=== PATIENT | male | born 1960 | race Caucasian/White ===

== ENCOUNTER 2017-01-07 10:50 | Observation (INO) | payer OTHER ==
[2017-01-07] MEDS ORDERED: cefTRIAXone IV 1 gm in Dextros 50 ML IVPB ONE (11:34)
[2017-01-07] MEDS ORDERED: MethylPREDNISolone 40 mg Vial ONE (11:34)
[2017-01-07 12:00] LABS: CHLORIDE 100 mmol/L (98-107); SODIUM 141 mmol/L (132-148)
[2017-01-07 12:01] LABS: POTASSIUM 4.1 mmol/L (3.6-5.2)
[2017-01-07 12:03] LABS: ALB/GLOB RATIO 1.5 (1.0-2.1); ALKALINE PHOSPHATASE 87 U/L (38-126); ALT/SGPT 101 U/L (21-72); AST/SGOT 82 U/L (17-59); BILIRUBIN,TOTAL 1.1 mg/dL (0.2-1.3); BLOOD UREA NITROGEN 17 mg/dL (9-20); CARBON DIOXIDE 24 mmol/L (22-30); GFR AFRICAN-AMERICAN > 60; GLUCOSE,RANDOM 109 mg/dL (75-110); TOTAL PROTEIN 8.3 g/dL (6.3-8.3)
[2017-01-07 12:04] LABS: CALCIUM 9.5 mg/dl (8.6-10.4)
[2017-01-07 12:08] LABS: BASO # 0.1 K/uL (0.0-0.2); BASO % 1.1 % (0.0-2.0); EOS # 0.3 K/uL (0.0-0.7); EOS % 3.2 % (0.0-4.0); HEMATOCRIT 45.7 % (35.0-51.0); LYMPH # 1.9 K/uL (1.0-4.3); LYMPH % 23.2 % (20.0-40.0); MEAN CORPUSCULAR HEMOGLOBIN 33.1 pg (27.0-31.0); MEAN CORPUSCULAR HGB CONC 34.1 g/dL (33.0-37.0); MEAN PLATELET VOLUME 8.4 fL (7.2-11.7); MONO # 0.6 K/uL (0.0-0.8); MONO % 7.2 % (0.0-10.0); RED CELL DISTRIBUTION WIDTH 13.8 % (11.5-14.5); WHITE BLOOD COUNT 8.1 K/uL (4.8-10.8)
[2017-01-07] MEDS ORDERED: cefTRIAXone IV 1 gm in Dextros 50 ML IV ONE (13:04)
[2017-01-07] MEDS ORDERED: Iodixanol 320 MG/ML 100 ML BOTTLE IV ONE (13:06)
--- NOTE | 2017-01-07 13:09 | C.PDOC ---
History Of Present Illness 56 year old male presents to the ED for evaluation of swelling to his left eye which began around 5 days ago. Patient states he applied antibiotic ointment to the area and notes his symptoms worsened when he woke up this morning. Patient notes he had similar symptoms around 2 weeks ago, which resolved after applying the same ointment. Patient denies fever, chills, vision change, headache, eye discharge or redness. Chief Complaint (Nursing): Eye Problem History Per: Patient History/Exam Limitations: no limitations Onset/Duration Of Symptoms: Days (5) Current Symptoms Are (Timing): Worse Injury To Eye?: No Associated Symptoms: Swelling. denies: Discharge From Eye Additional History Per: Patient Past Medical History Reviewed: Historical Data, Nursing Documentation, Vital Signs Vital Signs: Last Vital Signs Temp 98.8 F 01/07/17 16:55 Pulse 91 H 01/07/17 16:55 Resp 18 01/07/17 16:55 BP 192/114 H 01/07/17 16:55 Pulse Ox 98 01/07/17 16:55 - Medical History PMH: No Chronic Diseases Surgical History: Tonsillectomy Family History: States: Unknown Family Hx - Social History Hx Tobacco Use: No Hx Alcohol Use: Yes Hx Substance Use: No Review Of Systems Constitutional: Negative for: Fever, Chills Eyes: Positive for: Other (left eye swelling. no discharge ). Negative for: Vision Change, Redness Neurological: Negative for: Headache Physical Exam - Physical Exam Appears: Non-toxic, No Acute Distress Skin: Warm, Dry, Other (periorbital erythema ) Head: Atraumatic, Normacephalic, Tenderness, Swelling (periorbital swelling, erythema and tenderness) Eye(s): bilateral: PERRL, EOMI Nose: Normal Oral Mucosa: Moist Neck: Supple Chest: Symmetrical, No Deformity Cardiovascular: Rhythm Regular, No Murmur Respiratory: Normal Breath Sounds, No Accessory Muscle Use Extremity: Normal ROM Neurological/Psych: Oriented x3, Normal Speech, Normal Cognition Gait: Steady ED Course And Treatment - Laboratory Results Result Diagrams: 01/07/17 11:49 01/07/17 11:49 O2 Sat by Pulse Oximetry: 99 (on RA) Pulse Ox Interpretation: Normal - CT Scan/US CT Head Other Rad Studies (CT/US): Interpreted By Me, Read By Radiologist, Radiology Report Reviewed CT/US Interpretation: PROCEDURE: CT orbits dated 01/07/2017. HISTORY: Left periorbital swelling. COMPARISON: No prior. TECHNIQUE: Following administration of intravenous iodinated contrast, axial CT images of the orbits were obtained. Coronal and sagittal reformats were generated. Intravenous contrast dose: 100 cc Visipaque 320. Radiation dose: Total exam DLP = 576.62 mGy-cm. This CT exam was performed using one or more of the following dose reduction techniques: Automated exposure control, adjustment of the mA and/or kV according to patient size, and/or use of iterative reconstruction technique. FINDINGS: The current study reveals significant left-sided facial soft tissue swelling -cellulitis. Swelling extends from the inferior left premaxillary region superiorly into the left periorbital region and medially over nasal bones and bridge of the nose and glabella region. . There is further superolateral extension of soft tissue swelling over the supraorbital - lateral orbital rim and zygomatic arch. There is further extension over the supraorbital and left frontotemporal scalp. No evidence of postseptal extension. . There are no drainable fluid or abscess collection seen. No gross subcutaneous or orbital emphysema. The globes intact and lenses appropriately located. There are no retrobulbar hemorrhages or collections seen. Extraocular musculature and optic nerves unremarkable. The frontal sinuses are underpneumatized/hypoplastic. Remaining visualized paranasal sinuses well- developed and currently well-aerated. There are no fluid levels seen to suggest acute sinusitis. Minor mucosal thickening within both maxillary antra as well as a few ethmoid air cells. IMPRESSION: Extensive left-sided facial soft tissue swelling -cellulitis which extends from the inferior premaxillary region superiorly into the periorbital soft tissues. There is extension medially over the and nasal bones bridge of nose and glabella region. There is also further extension into the lateral orbital region and overlying the left zygomatic arch as well as the supraorbital and left frontotemporal soft tissues. . No drainable fluid or abscess collection seen. No evidence of postseptal extension of cellulitis. Progress Note: CT Orbits/Facial ordered and reviewed. Rocephin IV, Solu-Medrol IV administered. 15:[address] Haile's answering service. Case discused with Dr Cates, agreed upon plan and treatment. Instructed Lisinopril PO. Pt notes no h/o HTN. DEnies headache, chest pain, dizziness, sob. Case discussed with Dr Haile, agreed upon admission. Disposition - Disposition Disposition: HOME/ ROUTINE Disposition Time: 15:16 Condition: STABLE - Clinical Impression Clinical Impression: Periorbital cellulitis - PA / [employer] / Resident Statement MD/DO has reviewed & agrees with the documentation as recorded. - Scribe Statement The provider has reviewed the documentation as recorded by the Scribe (Ksenia Obrien) All medical record entries made by the Scribe were at my direction and personally dictated by me. I have reviewed the chart and agree that the record accurately reflects my personal performance of the history, physical exam, medical decision making, and the department course for this patient. I have also personally directed, reviewed, and agree with the discharge instructions and disposition
--- NOTE | 2017-01-07 14:53 | CT ---
PROCEDURE: CT orbits dated 01/07/2017 HISTORY: Left periorbital swelling COMPARISON: No prior TECHNIQUE: Following administration of intravenous iodinated contrast, axial CT images of the orbits were obtained. Coronal and sagittal reformats were generated. Intravenous contrast dose: 100 cc Visipaque 320 Radiation dose: Total exam DLP = 576.62 mGy-cm. This CT exam was performed using one or more of the following dose reduction techniques: Automated exposure control, adjustment of the mA and/or kV according to patient size, and/or use of iterative reconstruction technique. FINDINGS: The current study reveals significant left-sided facial soft tissue swelling -cellulitis. Swelling extends from the inferior left premaxillary region superiorly into the left periorbital region and medially over nasal bones and bridge of the nose and glabella region. . There is further superolateral extension of soft tissue swelling over the supraorbital - lateral orbital rim and zygomatic arch. There is further extension over the supraorbital and left frontotemporal scalp. No evidence of postseptal extension. . There are no drainable fluid or abscess collection seen. No gross subcutaneous or orbital emphysema. The globes intact and lenses appropriately located. There are no retrobulbar hemorrhages or collections seen. Extraocular musculature and optic nerves unremarkable The frontal sinuses are underpneumatized/hypoplastic. Remaining visualized paranasal sinuses well-developed and currently well-aerated. There are no fluid levels seen to suggest acute sinusitis. Minor mucosal thickening within both maxillary antra as well as a few ethmoid air cells. IMPRESSION: Extensive left-sided facial soft tissue swelling -cellulitis which extends from the inferior premaxillary region superiorly into the periorbital soft tissues. There is extension medially over the and nasal bones bridge of nose and glabella region. There is also further extension into the lateral orbital region and overlying the left zygomatic arch as well as the supraorbital and left frontotemporal soft tissues. . No drainable fluid or abscess collection seen. No evidence of postseptal extension of cellulitis.
--- NOTE | 2017-01-07 16:04 | CP.PCM.HP ---
History of Present Illness - History of Present Illness History of Present Illness: Medicine Note For Dr. Haile CC: swollen left eye HPI: 56M with no PMHx presents to the ED with left periorbital swelling that started 2 weeks ago. He denied any trauma to the eye, no foreign object, or eye scratching. Over the past 5 days the swelling started to become more significant , causing his left eye to remain closed. He applied a topical OTC antiobiotic ointment, which made it worse, which brought the patient to the ED. Denied any orbital discharge or bleeding. Denied any fever, chills, blurry visions, double vision, neurological deficits, sinus pressure, sinus congestion, headache, eye pain, chest pain, SOB, abdominal pain, n/v/d/c, or urinary symptoms. PMHx: Denied PSHx: Denied Meds: Denied All: NKDA SHx: Denied tobacco or illicit drug use, FHx: Denied PMD: None Present on Admission - Present on Admission Any Indicators Present on Admission: No Past Patient History - Past Social History Smoking Status: Never Smoked - PSYCHIATRIC Hx Substance Use: No - SURGICAL HISTORY Hx Tonsillectomy: Yes Meds Home Medications: Home Medication List Medication Instructions Recorded Confirmed Type Amoxicillin/Clavulanate [Augmentin 1 tab PO BID #14 tab 01/07/17 Rx 875 MG-125 MG] Sulfamethoxazole/Trimethoprim 1 tab PO BID #14 tab 01/07/17 Rx [Bactrim DS 800 mg-160 mg] Allergies/Adverse Reactions: Allergies Allergy/AdvReac Type Severity Reaction Status Date / Time No Known Allergies Allergy Unverified 01/07/17 10:59 Physical Exam - Constitutional Appears: No Acute Distress - Head Exam Head Exam: NORMAL INSPECTION, NORMOCEPHALIC - Eye Exam Eye Exam: EOMI, Periorbital swelling, Periorbital tenderness, PERRL. absent: Nystagmus, Scleral icterus Pupil Exam: NORMAL ACCOMODATION, PERRL Additional comments: EOMI, No diplopia, TTP around left orbit, No TTP around sinuses - ENT Exam ENT Exam: Mucous Membranes Moist - Neck Exam Neck exam: Positive for: Normal Inspection. Negative for: Lymphadenopathy, Tenderness, Thyromegaly - Respiratory Exam Respiratory Exam: Clear to Auscultation Bilateral, NORMAL BREATHING PATTERN. absent: Decreased Breath Sounds, Wheezes - Cardiovascular Exam Cardiovascular Exam: REGULAR RHYTHM, RRR, +S1, +S2. absent: Diastolic murmur, Systolic Murmur - GI/Abdominal Exam GI & Abdominal Exam: Normal Bowel Sounds, Soft. absent: Distended, Tenderness - Extremities Exam Extremities exam: Positive for: normal inspection, pedal pulses present. Negative for: pedal edema, tenderness - Neurological Exam Neurological exam: Alert, Oriented x3 - Psychiatric Exam Psychiatric exam: Normal Affect, Normal Mood - Skin Skin Exam: Dry, Intact, Normal Color, Warm Results - Vital Signs Recent Vital Signs: Last Vital Signs Temp 98.3 F 01/07/17 14:01 Pulse 70 01/07/17 14:01 Resp 20 01/07/17 14:01 BP 170/112 H 01/07/17 15:15 Pulse Ox 99 01/07/17 15:51 - Labs Result Diagrams: 01/07/17 11:49 01/07/17 11:49 Labs: Laboratory Results - last 24 hr 01/07/17 01/07/17 11:49 11:49 WBC 8.1 RBC 4.72 Hgb 15.6 Hct 45.7 MCV 97.0 H MCH 33.1 H MCHC 34.1 RDW 13.8 Plt Count 250 MPV 8.4 Neut % (Auto) 65.3 Lymph % (Auto) 23.2 [facility] % (Auto) 7.2 Eos % (Auto) 3.2 Baso % (Auto) 1.1 Neut # 5.3 Lymph # 1.9 [facility] # 0.6 Eos # 0.3 Baso # 0.1 Sodium 141 Potassium 4.1 Chloride 100 Carbon Dioxide 24 Anion Gap 22 H BUN 17 Creatinine 0.8 Est GFR ( Amer) > 60 Est GFR (Non-Af Amer) > 60 Random Glucose 109 Calcium 9.5 Total Bilirubin 1.1 AST 82 H ALT 101 H Alkaline Phosphatase 87 Total Protein 8.3 Albumin 5.0 Globulin 3.3 Albumin/Globulin Ratio 1.5 Assessment & Plan - Assessment and Plan (Free Text) Plan: Periorbital cellulitis * Left periorbital erythema and edema * Facial Bones CT: Extensive left-sided facial soft tissue swelling -cellulitis which extends from the inferior premaxillary region superiorly into the periorbital soft tissues. There is extension medially over the and nasal bones bridge of nose and glabella region. There is also further extension into the lateral orbital region and overlying the left zygomatic arch as well as the supraorbital and left frontotemporal soft tissues. No drainable fluid or abscess collection seen. No evidence of postseptal extension of cellulitis. * No neurological deficits - will hold off on ENT or Optho consult, unless not responsive to ABX * Received a dose of solumedrol in the ED- expect leukocytosis * F/U procal * Started on Zosyn Q6H, Vancomycin 1grm QD 01/07/17 Hypertension * Started on Norvasc 5mg PO daily * Hydralazine 25mg PO TID PRN if SBP >180 * Will continue to monitor Transaminitis * LFTs: 82/101 * F/U Hep panel Prophylactic Measures * GI PPX: Protonix 40mg PO daily * DVT PPX: SCDs * Heart Healthy Diet with 2gm Na restriction * Zofran PRN DW Joce Goyal DO, PGY-1
[2017-01-07] MEDS ORDERED: Aritificial Tears (15ml) OU PRN ×2 (16:47→17:00)
[2017-01-07] MEDS ORDERED: Vancomycin 1 GM 1 GM/250 ML BAG IVPB ONE (16:54)
[2017-01-07 18:23] VITALS: RESP 20
[2017-01-07] MEDS: Piperacill/Tazo 3.375gm in Dex 3.375 GM/50 ML BAG IVPB SCH (19:55)
[2017-01-08] MEDS: Piperacill/Tazo 3.375gm in Dex 3.375 GM/50 ML BAG IVPB SCH ×4 (00:19→19:00)
--- NOTE | 2017-01-08 09:14 | CP.PCM.PN ---
<Ortiz Hobsona - Last Filed: 01/08/17 13:27> Subjective - Date & Time of Evaluation Date of Evaluation: 01/08/17 Time of Evaluation: 08:00 - Subjective Subjective: Medicine Note for Dr. Haile Patient was seen and examined at bedside. Patient reports a reduction in swelling, no eye pain. Denied fever, chills, headache, SOB, chest pain, abdominal pain, n/v/d/c, or urinary symptoms. Objective - Vital Signs/Intake and Output Vital Signs (last 24 hours): Temp Pulse Resp BP Pulse Ox 97.9 F 78 20 139/90 96 01/08/17 08:00 01/08/17 08:00 01/08/17 08:00 01/08/17 08:00 01/08/17 08:00 Intake and Output: 01/08/17 01/08/17 06:59 18:59 Intake Total 850 Balance 850 - Medications Medications: Current Medications Acetaminophen (Tylenol 325mg Tab) 650 mg PO Q6 PRN PRN Reason: Pain, Mild (1-3) Amlodipine Besylate (Norvasc) 5 mg PO DAILY [facility] Artificial Tears (Artificial Tears) 0 ml OU TID PRN PRN Reason: Dry eyes Hydralazine HCl (Apresoline) 25 mg PO QID PRN PRN Reason: Systolic Blood Pressure Piperacillin Sod/Tazobactam Sod (Zosyn 3.375 Gm Iv Premix) 3.375 gm in 50 mls @ 100 mls/hr IVPB Q6H [facility] Last Admin: 01/08/17 06:07 Dose: 100 mls/hr Vancomycin HCl 1 gm/ Sodium (Chloride) 250 mls @ 166.7 mls/hr IVPB Q24H [facility] Ondansetron HCl (Zofran Inj) 4 mg IVP Q6 PRN PRN Reason: Nausea/Vomiting Pantoprazole Sodium (Protonix Ec Tab) 40 mg PO DAILY [facility]IA[facility] - Labs Labs: 01/07/17 11:49 01/07/17 11:49 - Additional Findings Additional findings: - Constitutional Appears: No Acute Distress - Head Exam Head Exam: NORMAL INSPECTION, NORMOCEPHALIC - Eye Exam Eye Exam: EOMI, Periorbital swelling, Periorbital tenderness, PERRL. absent: Nystagmus, Scleral icterus Pupil Exam: NORMAL ACCOMODATION, PERRL Additional comments: EOMI, No diplopia, TTP around left orbit, No TTP around sinuses, less erythema and edema around left orbit - ENT Exam ENT Exam: Mucous Membranes Moist - Neck Exam Neck exam: Positive for: Normal Inspection. Negative for: Lymphadenopathy, Tenderness, Thyromegaly - Respiratory Exam Respiratory Exam: Clear to Auscultation Bilateral, NORMAL BREATHING PATTERN. absent: Decreased Breath Sounds, Wheezes - Cardiovascular Exam Cardiovascular Exam: REGULAR RHYTHM, RRR, +S1, +S2. absent: Diastolic murmur, Systolic Murmur - GI/Abdominal Exam GI & Abdominal Exam: Normal Bowel Sounds, Soft. absent: Distended, Tenderness - Extremities Exam Extremities exam: Positive for: normal inspection, pedal pulses present. Negative for: pedal edema, tenderness - Neurological Exam Neurological exam: Alert, Oriented x3 - Psychiatric Exam Psychiatric exam: Normal Affect, Normal Mood - Skin Skin Exam: Dry, Intact, Normal Color, Warm Assessment and Plan - Assessment and Plan (Free Text) Plan: Periorbital cellulitis * Left periorbital erythema and edema * Facial Bones CT: Extensive left-sided facial soft tissue swelling -cellulitis which extends from the inferior premaxillary region superiorly into the periorbital soft tissues. There is extension medially over the and nasal bones bridge of nose and glabella region. There is also further extension into the lateral orbital region and overlying the left zygomatic arch as well as the supraorbital and left frontotemporal soft tissues. No drainable fluid or abscess collection seen. No evidence of postseptal extension of cellulitis. * No neurological deficits - will hold off on ENT or Optho consult, unless not responsive to ABX * Received a dose of solumedrol in the ED- expected leukocytosis on AM labs * ID consulted - Dr. Jones- help appreciated * F/U procal * Started on Zosyn Q6H, Vancomycin 1grm QD 01/07/17 Hypertension * Started on Norvasc 5mg PO daily * Hydralazine 25mg PO TID PRN if SBP >180 * BP today 139/90 - without any BP medications - will continue to monitor and adjust medications accordingly Transaminitis * LFTs: 82/101 * F/U Hep panel Prophylactic Measures * GI PPX: Protonix 40mg PO daily * DVT PPX: SCDs * Heart Healthy Diet with 2gm Na restriction * Zofran PRN DW Joce Goyal DO, PGY-1 <Elan Haile Jr. - Last Filed: 01/22/17 11:51> Objective - Vital Signs/Intake and Output Vital Signs (last 24 hours): Temp Pulse Resp BP Pulse Ox 98.6 F 63 20 152/90 H 98 01/09/17 08:06 01/09/17 08:06 01/09/17 08:06 01/09/17 08:06 01/09/17 08:06 - Labs Labs: 01/09/17 07:54 01/09/17 07:54 Attending/Attestation - Attestation I have personally seen and examined this patient.: Yes I have fully participated in the care of the patient.: Yes I have reviewed all pertinent clinical information, including history, physical exam and plan: Yes Notes (Text): 01/22/17 11:51 Agree with resident note and plan of care
[2017-01-08 09:15] LABS: BASO # 0.1 K/uL (0.0-0.2); BASO % 0.7 % (0.0-2.0); EOS # 0.1 K/uL (0.0-0.7); EOS % 0.5 % (0.0-4.0); HEMATOCRIT 42.3 % (35.0-51.0); LYMPH # 1.5 K/uL (1.0-4.3); LYMPH % 13.9 % (20.0-40.0); MEAN CELL VOLUME 95.7 fL (80.0-94.0); MEAN CORPUSCULAR HEMOGLOBIN 33.3 pg (27.0-31.0); MEAN CORPUSCULAR HGB CONC 34.8 g/dL (33.0-37.0); MEAN PLATELET VOLUME 8.5 fL (7.2-11.7); MONO # 0.6 K/uL (0.0-0.8); MONO % 5.3 % (0.0-10.0); RED CELL DISTRIBUTION WIDTH 13.8 % (11.5-14.5); WHITE BLOOD COUNT 10.9 K/uL (4.8-10.8)
[2017-01-08 09:28] LABS: CHLORIDE 99 mmol/L (98-107); POTASSIUM 3.4 mmol/L (3.6-5.2); SODIUM 137 mmol/L (132-148)
[2017-01-08 09:31] LABS: BILIRUBIN,TOTAL 1.2 mg/dL (0.2-1.3); CARBON DIOXIDE 21 mmol/L (22-30); CHOLESTEROL 243 mg/dL (0-199); GFR AFRICAN-AMERICAN > 60
[2017-01-08 09:32] LABS: ALB/GLOB RATIO 1.4 (1.0-2.1); ALKALINE PHOSPHATASE 63 U/L (38-126); ALT/SGPT 72 U/L (21-72); AST/SGOT 49 U/L (17-59); BLOOD UREA NITROGEN 18 mg/dL (9-20); CALCIUM 9.1 mg/dl (8.6-10.4); GLUCOSE,RANDOM 171 mg/dL (75-110); MAGNESIUM 1.9 mg/dL (1.6-2.3); PHOSPHOROUS 3.2 mg/dL (2.5-4.5); TOTAL PROTEIN 7.3 g/dL (6.3-8.3)
[2017-01-08] MEDS: Pantoprazole 40 mg EC Tab PO SCH (10:05)
[2017-01-08] MEDS ORDERED: MethylPREDNISolone 40 mg Vial IVP ONE (11:30)
[2017-01-08 16:33] VITALS: O2SAT 98
--- NOTE | 2017-01-08 17:23 | CP.PCM.CON ---
History of Present Illness - History of Present Illness History of Present Illness: 56M with no PMHx presents to the ED with left periorbital swelling that started 2 weeks ago. Failed out pt rx with augmentin and bactrim He denied any trauma to the eye, no foreign object, or eye scratching. Over the past 5 days the swelling started to become more significant, causing his left eye to remain closed. He applied a topical OTC antiobiotic ointment, which made it worse, which brought the patient to the ED. Denied any orbital discharge or bleeding. Denied any fever, chills, blurry visions, double vision, neurological deficits, sinus pressure, sinus congestion, headache, eye pain, chest pain, SOB, abdominal pain, n/v/d/c, or urinary symptoms. Review of Systems - Constitutional Constitutional: As Per HPI. absent: Chills, Fever - EENT Eyes: As Per HPI Ears: absent: As Per HPI, Decreased Hearing, Ear Discharge, Ear Pain, Tinnitus, Abnormal Hearing, Disequilibrium, Dizziness, Other Nose/Mouth/Throat: absent: As Per HPI, Epistaxis, Nasal Congestion, Nasal Discharge, Nasal Obstruction, Nasal Trauma, Nose Pain, Post Nasal Drip, Sinus Pain, Sinus Pressure, Bleeding Gums, Change in Voice, Dental Pain, Dry Mouth, Dysphagia, Halitosis, Hoarsness, Lip Swelling, Mouth Lesions, Mouth Pain, Odynophagia, Sore Throat, Throat Swelling, Tongue Swelling, Facial Pain, Neck Pain, Neck Mass, Other - Cardiovascular Cardiovascular: absent: As Per HPI, Acrocyanosis, Chest Pain, Chest Pain at Rest , Chest Pain with Activity, Claudication, Diaphoresis, Dyspnea, Dyspnea on Exertion, Edema, Irregular Heart Rhythm, Pain Radiating to Arm/Neck/Jaw, Leg Edema, Leg Ulcers, Lightheadedness, Orthopnea, Palpitations, Paroxysmal Nocturnal Dyspnea, Pedal Edema, Radiating Pain, Rapid Heart Rate, Slow Heart Rate, Syncope, Other - Respiratory Respiratory: absent: As Per HPI, Cough, Dyspnea, Hemoptysis, Dyspnea on Exertion , Wheezing, Snoring, Stridor, Pain on Inspiration, Chest Congestion, Excessive Mucous Production, Change in Mucous Color, Pain with Coughing, Other - Gastrointestinal Gastrointestinal: absent: As Per HPI, Abdominal Pain, Belching, Bloating, Change in Bowel Habits, Change in Stool Character, Coffee Ground Emesis, Constipation, Cramping, Diarrhea, Dyspepsia, Dysphagia, Early Satiety, Excessive Flatus, Fecal Incontinence, Heartburn, Hematemesis, Hematochezia, Loose Stools, Melena, Nausea, Odynophagia, Temesmus, Vomiting, Other - Genitourinary Genitourinary: absent: As Per HPI, Change in Urinary Stream, Difficulty Urinating, Dysuria, Flank Pain, Hematuria, Pyuria, Nocturia, Urinary Incontinence, Urinary Frequency, Urinary Hesitance, Urinary Urgency, Voiding Freq/Small Amts, Freq UTI, Hx Renal/Bladder Calculi, Hx /Renal Surgery, Bladder Distension, Other - Musculoskeletal Musculoskeletal: absent: As Per HPI, Abnormal Gait, Arthralgias, Atrophy, Back Pain, Deformity, Joint Swelling, Limited Range of Motion, Loss of Height, Muscle Cramps, Muscle Weakness, Myalgias, Neck Pain, Numbness, Radiating Pain into Limb, Stiffness, Tingling, Other - Integumentary Integumentary: absent: As Per HPI, Acne, Alopecia, Bleeding Lesions, Change in Hair, Change in Nails, Change in Pigmentation, Changing Lesions, Dry Skin, Erythema, Furuncle, Hirsutism, Lesions, New Lesions, Non-Healing Lesions, Photosensitivity, Pruritus, Rash, Skin Pain, Skin Ulcer, Sores, Striae, Swelling , Unusual Bruising, Wounds, Jaundice, Other - Neurological Neurological: absent: As Per HPI, Abnormal Gait, Abnormal Hearing, Abnormal Movements, Abnormal Speech, Behavioral Changes, Burning Sensations, Confusion, Convulsions, Disequilibrium, Dizziness, Numbness, Focal Weakness, Frequent Falls , Headaches, Lack of Coordination, Loss of Vision, Memory Loss, Paresthesias, Radicular Pain, Restless Legs, Sensory Deficit, Syncope, Tingling, Tremor, Vertigo, Weakness, Other Visual Disturbances, Other - Psychiatric Psychiatric: absent: As Per HPI, Abnormal Sleep Pattern, Anhedonia, Anxiety, Auditory Hallucinations, Behavioral Changes, Change in Appetite, Change in Libido, Confusion, Depression, Difficulty Concentrating, Hallucinations, Homicidal Ideation, Hopelessness, Irritability, Memory Loss, Mood Swings, Panic Attacks, Paranoia, Suicidal Ideation, Visual Hallucinations, Tactile Hallucinations, Other - Endocrine Endocrine: absent: As Per HPI, Change in Body Appearance, Change in Libido, Cold Intolorance, Deepening of Voice, Excessive Sweating, Fatigue, Flushing, Heat Intolorance, Increase in Ring/Shoe/Hat Size, Palpitations, Polydipsia, Polyphagia, Polyuria, Other - Hematologic/Lymphatic Hematologic: absent: As Per HPI, Easy Bleeding, Easy Bruising, Lymphadenopathy, Other Past Patient History - Past Social History Smoking Status: Never Smoked - MUSCULOSKELETAL/RHEUMATOLOGICAL Hx Falls: No - PSYCHIATRIC Hx Substance Use: No - SURGICAL HISTORY Hx Tonsillectomy: Yes - ANESTHESIA Hx Anesthesia: Yes Hx Anesthesia Reactions: No Hx Malignant Hyperthermia: No Has any member of the family had a problem w/ anesthesia?: No Meds Home Medications: Home Medication List Medication Instructions Recorded Confirmed Type Amoxicillin/Clavulanate [Augmentin 1 tab PO BID #14 tab 01/07/17 Rx 875 MG-125 MG] Sulfamethoxazole/Trimethoprim 1 tab PO BID #14 tab 01/07/17 Rx [Bactrim DS 800 mg-160 mg] Allergies/Adverse Reactions: Allergies Allergy/AdvReac Type Severity Reaction Status Date / Time No Known Allergies Allergy Unverified 01/07/17 10:59 - Medications Medications: Current Medications Acetaminophen (Tylenol 325mg Tab) 650 mg PO Q6 PRN PRN Reason: Pain, Mild (1-3) Amlodipine Besylate (Norvasc) 5 mg PO DAILY [facility] Last Admin: 01/08/17 10:05 Dose: 5 mg Artificial Tears (Artificial Tears) 0 ml OU TID PRN PRN Reason: Dry eyes Hydralazine HCl (Apresoline) 25 mg PO QID PRN PRN Reason: Systolic Blood Pressure Piperacillin Sod/Tazobactam Sod (Zosyn 3.375 Gm Iv Premix) 3.375 gm in 50 mls @ 100 mls/hr IVPB Q6H [facility] Last Admin: 01/08/17 12:00 Dose: 100 mls/hr Vancomycin HCl 1 gm/ Sodium (Chloride) 250 mls @ 166.7 mls/hr IVPB Q12H [facility] Ondansetron HCl (Zofran Inj) 4 mg IVP Q6 PRN PRN Reason: Nausea/Vomiting Pantoprazole Sodium (Protonix Ec Tab) 40 mg PO DAILY [facility] Last Admin: 01/08/17 10:05 Dose: 40 mg Physical Exam - Constitutional Appears: Non-toxic, Chronically Ill - Head Exam Head Exam: ATRAUMATIC, NORMAL INSPECTION, NORMOCEPHALIC - Eye Exam Eye Exam: EOMI, Periorbital swelling, Periorbital tenderness, PERRL. absent: Scleral icterus Pupil Exam: NORMAL ACCOMODATION - ENT Exam ENT Exam: Mucous Membranes Dry, Normal External Ear Exam, Normal Oropharynx - Neck Exam Neck exam: Negative for: Lymphadenopathy - Respiratory Exam Respiratory Exam: Decreased Breath Sounds, Clear to Auscultation Bilateral - Cardiovascular Exam Cardiovascular Exam: REGULAR RHYTHM, +S1, +S2 - GI/Abdominal Exam GI & Abdominal Exam: Diminished Bowel Sounds, Soft. absent: Tenderness - Rectal Exam Rectal Exam: Deferred - Exam Exam: NORMAL INSPECTION - Extremities Exam Extremities exam: Positive for: pedal pulses present. Negative for: calf tenderness, full ROM, pedal edema, tenderness - Back Exam Back exam: absent: CVA tenderness (L), CVA tenderness (R) - Neurological Exam Neurological exam: Alert, CN II-XII Intact, Oriented x3 - Psychiatric Exam Psychiatric exam: Normal Mood - Skin Skin Exam: Dry, Intact Results - Vital Signs Recent Vital Signs: Last Vital Signs Temp 98.5 F 01/08/17 15:00 Pulse 65 01/08/17 15:00 Resp 20 01/08/17 15:00 BP 148/91 H 01/08/17 15:00 Pulse Ox 98 01/08/17 15:00 - Labs Result Diagrams: 01/08/17 09:05 01/08/17 09:05 Labs: Laboratory Results - last 24 hr 01/08/17 01/08/17 09:05 09:05 WBC 10.9 H RBC 4.42 Hgb 14.7 Hct 42.3 MCV 95.7 H MCH 33.3 H MCHC 34.8 RDW 13.8 Plt Count 263 MPV 8.5 Neut % (Auto) 79.6 H Lymph % (Auto) 13.9 L [place] % (Auto) 5.3 Eos % (Auto) 0.5 Baso % (Auto) 0.7 Neut # 8.7 H Lymph # 1.5 [place] # 0.6 Eos # 0.1 Baso # 0.1 Sodium 137 Potassium 3.4 L Chloride 99 Carbon Dioxide 21 L Anion Gap 20 BUN 18 Creatinine 0.9 Est GFR ( Amer) > 60 Est GFR (Non-Af Amer) > 60 Random Glucose 171 H Calcium 9.1 Phosphorus 3.2 Magnesium 1.9 Total Bilirubin 1.2 AST 49 ALT 72 D Alkaline Phosphatase 63 Total Protein 7.3 Albumin 4.3 Globulin 3.1 Albumin/Globulin Ratio 1.4 Triglycerides 86 Cholesterol 243 H LDL Cholesterol Direct 140 H HDL Cholesterol 98 H Assessment & Plan (1) Periorbital cellulitis Status: Acute - Assessment and Plan (Free Text) Plan: improving on Vanco/zosyn cont rx
[2017-01-09] MEDS: Piperacill/Tazo 3.375gm in Dex 3.375 GM/50 ML BAG IVPB SCH ×3 (00:52→13:07)
[2017-01-09 08:07] VITALS: BP 152/90; PULSE 63; TEMP 98.6
[2017-01-09 08:11] LABS: BASO # 0.1 K/uL (0.0-0.2); BASO % 0.7 % (0.0-2.0); EOS # 0.1 K/uL (0.0-0.7); HEMATOCRIT 41.4 % (35.0-51.0); LYMPH # 2.1 K/uL (1.0-4.3); LYMPH % 20.6 % (20.0-40.0); MEAN CELL VOLUME 96.3 fL (80.0-94.0); MEAN CORPUSCULAR HEMOGLOBIN 33.7 pg (27.0-31.0); MEAN PLATELET VOLUME 8.7 fL (7.2-11.7); MONO # 0.7 K/uL (0.0-0.8); MONO % 7.3 % (0.0-10.0); NRBC % 0.1 % (0.0-2.0); RED CELL DISTRIBUTION WIDTH 13.7 % (11.5-14.5); WHITE BLOOD COUNT 10.3 K/uL (4.8-10.8)
[2017-01-09 08:53] LABS: CHLORIDE 99 mmol/L (98-107); POTASSIUM 3.9 mmol/L (3.6-5.2); SODIUM 136 mmol/L (132-148)
[2017-01-09 08:55] LABS: ALB/GLOB RATIO 1.4 (1.0-2.1); ALKALINE PHOSPHATASE 54 U/L (38-126); AST/SGOT 40 U/L (17-59); BLOOD UREA NITROGEN 17 mg/dL (9-20); CARBON DIOXIDE 23 mmol/L (22-30); GFR AFRICAN-AMERICAN > 60; TOTAL PROTEIN 6.9 g/dL (6.3-8.3)
[2017-01-09 08:56] LABS: ALT/SGPT 70 U/L (21-72); CALCIUM 8.6 mg/dl (8.6-10.4); GLUCOSE,RANDOM 88 mg/dL (75-110); MAGNESIUM 2.1 mg/dL (1.6-2.3); PHOSPHOROUS 3.5 mg/dL (2.5-4.5)
[2017-01-09] MEDS: Pantoprazole 40 mg EC Tab PO SCH (09:24)
--- NOTE | 2017-01-09 11:35 | CP.PCM.PN ---
Subjective - Date & Time of Evaluation Date of Evaluation: 01/09/17 Time of Evaluation: 08:00 - Subjective Subjective: improving cellulitis OS less swollen Objective - Vital Signs/Intake and Output Vital Signs (last 24 hours): Temp Pulse Resp BP Pulse Ox 98.6 F 63 20 152/90 H 98 01/09/17 08:06 01/09/17 08:06 01/09/17 08:06 01/09/17 08:06 01/09/17 08:06 Intake and Output: 01/09/17 01/09/17 06:59 18:59 Intake Total 600 400 Balance 600 400 - Medications Medications: Current Medications Acetaminophen (Tylenol 325mg Tab) 650 mg PO Q6 PRN PRN Reason: Pain, Mild (1-3) Amlodipine Besylate (Norvasc) 5 mg PO DAILY [facility] Last Admin: 01/09/17 09:24 Dose: 5 mg Artificial Tears (Artificial Tears) 0 ml OU TID PRN PRN Reason: Dry eyes Hydralazine HCl (Apresoline) 25 mg PO QID PRN PRN Reason: Systolic Blood Pressure Piperacillin Sod/Tazobactam Sod (Zosyn 3.375 Gm Iv Premix) 3.375 gm in 50 mls @ 100 mls/hr IVPB Q6H [facility] Last Admin: 01/09/17 06:15 Dose: 100 mls/hr Vancomycin HCl 1 gm/ Sodium (Chloride) 250 mls @ 166.7 mls/hr IVPB Q12H [facility] Last Admin: 01/09/17 09:24 Dose: 166.7 mls/hr Ondansetron HCl (Zofran Inj) 4 mg IVP Q6 PRN PRN Reason: Nausea/Vomiting Pantoprazole Sodium (Protonix Ec Tab) 40 mg PO DAILY [facility] Last Admin: 01/09/17 09:24 Dose: 40 mg - Labs Labs: 01/09/17 07:54 01/09/17 07:54 - Constitutional Appears: Non-toxic, Chronically Ill - Head Exam Head Exam: NORMOCEPHALIC - Eye Exam Eye Exam: PERRL - ENT Exam ENT Exam: Mucous Membranes Dry - Neck Exam Neck Exam: absent: Lymphadenopathy - Respiratory Exam Respiratory Exam: Decreased Breath Sounds, Clear to Ausculation Bilateral - Cardiovascular Exam Cardiovascular Exam: REGULAR RHYTHM - GI/Abdominal Exam GI & Abdominal Exam: Distended, Soft Assessment and Plan (1) Periorbital cellulitis Status: Acute - Assessment and Plan (Free Text) Plan: cont antibiotics
[2017-01-09] MEDS ORDERED: Influenza Vaccine 60 mcg/0.5 mL SYR (4YR UP) IM ONE (13:57)
--- NOTE | 2017-01-09 14:48 | CP.PCM.DIS ---
Provider - Provider Date of Admission: 01/07/17 15:57 Attending physician: Elan Haile Jr, MD Time Spent in preparation of Discharge (in minutes): 32 Diagnosis - Discharge Diagnosis (1) Periorbital cellulitis Status: Acute (2) Transaminitis Status: Acute (3) History of hypertension Status: Chronic (4) Prophylactic measure Status: Acute Hospital Course - Lab Results Lab Results: Most Recent Lab Values WBC 10.3 K/uL (4.8-10.8) 01/09/17 07:54 RBC 4.30 Mil/uL (4.40-5.90) L 01/09/17 07:54 Hgb 14.5 g/dL (12.0-18.0) 01/09/17 07:54 Hct 41.4 % (35.0-51.0) 01/09/17 07:54 MCV 96.3 fL (80.0-94.0) H 01/09/17 07:54 MCH 33.7 pg (27.0-31.0) H 01/09/17 07:54 MCHC 35.0 g/dL (33.0-37.0) 01/09/17 07:54 RDW 13.7 % (11.5-14.5) 01/09/17 07:54 Plt Count 249 K/uL (130-400) 01/09/17 07:54 MPV 8.7 fL (7.2-11.7) 01/09/17 07:54 Neut % (Auto) 70.4 % (50.0-75.0) 01/09/17 07:54 Lymph % (Auto) 20.6 % (20.0-40.0) 01/09/17 07:54 [place] % (Auto) 7.3 % (0.0-10.0) 01/09/17 07:54 Eos % (Auto) 1.0 % (0.0-4.0) 01/09/17 07:54 Baso % (Auto) 0.7 % (0.0-2.0) 01/09/17 07:54 Neut # 7.2 K/uL (1.8-7.0) H 01/09/17 07:54 Lymph # 2.1 K/uL (1.0-4.3) 01/09/17 07:54 [place] # 0.7 K/uL (0.0-0.8) 01/09/17 07:54 Eos # 0.1 K/uL (0.0-0.7) 01/09/17 07:54 Baso # 0.1 K/uL (0.0-0.2) 01/09/17 07:54 Sodium 136 mmol/L (132-148) 01/09/17 07:54 Potassium 3.9 mmol/L (3.6-5.2) 01/09/17 07:54 Chloride 99 mmol/L (98-107) 01/09/17 07:54 Carbon Dioxide 23 mmol/L (22-30) 01/09/17 07:54 Anion Gap 17 (-20) 01/09/17 07:54 BUN 17 mg/dL (9-20) 01/09/17 07:54 Creatinine 0.8 MG/DL (0.8-1.5) 01/09/17 07:54 Est GFR ( Amer) > 60 01/09/17 07:54 Est GFR (Non-Af Amer) > 60 01/09/17 07:54 Random Glucose 88 mg/dL (75-110) 01/09/17 07:54 Calcium 8.6 mg/dl (8.6-10.4) 01/09/17 07:54 Phosphorus 3.5 mg/dL (2.5-4.5) 01/09/17 07:54 Magnesium 2.1 mg/dL (1.6-2.3) 01/09/17 07:54 Total Bilirubin 1.0 mg/dL (0.2-1.3) 01/09/17 07:54 AST 40 U/L (17-59) 01/09/17 07:54 ALT 70 U/L (21-72) 01/09/17 07:54 Alkaline Phosphatase 54 U/L (38-126) 01/09/17 07:54 Total Protein 6.9 g/dL (6.3-8.3) 01/09/17 07:54 Albumin 4.0 g/dL (3.5-5.0) 01/09/17 07:54 Globulin 2.9 gm/dL (2.2-3.9) 01/09/17 07:54 Albumin/Globulin Ratio 1.4 (1.0-2.1) 01/09/17 07:54 Triglycerides 86 mg/dL (0-149) 01/08/17 09:05 Cholesterol 243 mg/dL (0-199) H 01/08/17 09:05 LDL Cholesterol Direct 140 mg/dL (0-129) H 01/08/17 09:05 HDL Cholesterol 98 mg/dL (30-70) H 01/08/17 09:05 - Hospital Course Hospital Course: On admission: "56M with no PMHx presents to the ED with left periorbital swelling that started 2 weeks ago. He denied any trauma to the eye, no foreign object, or eye scratching. Over the past 5 days the swelling started to become more significant , causing his left eye to remain closed. He applied a topical OTC antiobiotic ointment, which made it worse, which brought the patient to the ED. Denied any orbital discharge or bleeding. Denied any fever, chills, blurry visions, double vision, neurological deficits, sinus pressure, sinus congestion, headache, eye pain, chest pain, SOB, abdominal pain, n/v/d/c, or urinary symptoms." Hospital Course: Patient admitted for periorbital cellulitis. Facial Bones CT: Extensive left-sided facial soft tissue swelling -cellulitis which extends from the inferior premaxillary region superiorly into the periorbital soft tissues. There is extension medially over the and nasal bones bridge of nose and glabella region. There is also further extension into the lateral orbital region and overlying the left zygomatic arch as well as the supraorbital and left frontotemporal soft tissues. No drainable fluid or abscess collection seen. No evidence of postseptal extension of cellulitis. On admission, patient also had transaminitis which has since resolved. Patient started on IV Vancomycin and Zosyn and improvement noted during hospital course. Infectious disease specialist consulted. Dr. Jones documented that patient failed outpatient treatment with Bactrim and Augmentin. So the decision was made in conjunction with Dr. Jones to discharge the patient on Cleocin 300 mg Q6H for 7 days as well as Florastor for probiotics. This is a summary of the hospital course. For more information, refer to the medical records. Discharge Exam - Head Exam Head Exam: ATRAUMATIC, NORMOCEPHALIC - Eye Exam Eye Exam: EOMI, Periorbital swelling (improved significantly since admission), Periorbital tenderness, PERRL - Respiratory Exam Respiratory Exam: Clear to PA & Lateral, NORMAL BREATHING PATTERN. absent: Rales, Rhonchi, Wheezes - Cardiovascular Exam Cardiovascular Exam: REGULAR RHYTHM, +S1, +S2 - GI/Abdominal Exam GI & Abdominal Exam: Normal Bowel Sounds, Soft. absent: Tenderness - Extremities Exam Extremities exam: pedal pulses present - Neurological Exam Neurological exam: Alert, Oriented x3 - Psychiatric Exam Psychiatric exam: Normal Affect, Normal Mood - Skin Skin Exam: Dry, Intact, Warm Discharge Plan - Discharge Medications Prescriptions: Clindamycin [Cleocin] 300 mg PO Q6H 7 Days #28 cap Saccharomyces Boulardii [Florastor] 250 mg PO BID 14 Days #28 capsule - Follow Up Plan Condition: STABLE Disposition: HOME/ ROUTINE Instructions: Clindamycin (By mouth), Probiotic (By mouth), Chronic Hypertension (ED), Periorbital Cellulitis in Adults (ED) Additional Instructions: Follow up with primary medical doctor in 1-3 days without fail for further evaluation. Take medications as prescribed. Return to the emergency department at any time if symptoms persist or worsen.
== END 2017-01-09 14:44 | disposition home or self-care (01) ==
LOC: C.ER 10:50 → C.9E 15:57 → C.3T 17:47
PROVIDERS: ADMIT Internal Medicine; ATTEND Internal Medicine
DX: L03.213 Periorbital cellulitis (principal); I10 Essential (primary) hypertension
CPT/HCPCS: 36415; 70481; 80053; 80061; 83735; 84100; 85025; 90674; 96365; 96366; 96367; 96375; 96376; 99285; G0378; J0360; J0696; J2543; J2920; J2930; J7050; Q9967